=== PATIENT | female | born 2000 | race Caucasian/White ===

== ENCOUNTER 2019-08-08 00:39 | Emergency (ER) | payer OTHER ==
[2019-08-08] MEDS: OLANZAPINE 10 MG VIAL IM (00:57)
[2019-08-08] MEDS: LORAZEPAM 2 MG INJ IV ×2 (01:20→04:59)
[2019-08-08] MEDS: SOD CHLORIDE 0.9% 2,000 ML IV (02:19)
[2019-08-08] MEDS: SOD CHLORIDE 0.9% 1,000 ML IV (04:53)
== END 2019-08-08 07:15 | disposition home or self-care (01) ==
LOC: E/R 00:39
DX: F10.129 Alcohol abuse with intoxication, unspecified (principal)
CPT/HCPCS: 36415; 80048; 80053; 80307; 81003; 85025; 96372; 96374; 96376; 99285-25